=== PATIENT | male | born 2000 | race Caucasian/White ===

== ENCOUNTER → 2022-05-07 10:57 | Outpatient (CLI) | payer SELFPAY ==
--- NOTE | ~2022-05-07 | US_ITS ---
US scrotum doppler INDICATION: Right testicular swelling TECHNIQUE: Testicular sonogram utilizing grayscale and color Doppler FINDINGS: The testes are normal in size and appearance. No focal lesions are seen. The right testes measures 4.7 x 3 x 3.5 cm centimeters, and the left testis measures 5 x 2.7 x 3.6 cm cm. There is nor mal vascular flow to both testes. There are small left epididymal cyst measuring up to 3 mm. There is a moderate right hydrocele. There is a small left hydrocele. IMPRESSION: 1. Bilateral hydroceles, right greater than left. Reviewed, dictated and finalized at location A.
== END ==
PROVIDERS: PCP Family Medicine; Visit Provider Family Medicine
DX: N50.89 Other specified disorders of the male genital organs (principal); N50.3 Cyst of epididymis; N43.3 Hydrocele, unspecified
CPT/HCPCS: 76870; 93976